=== PATIENT | female | born 1950 | race Caucasian/White ===

== ENCOUNTER 2018-05-24 06:22 | Inpatient (IN) | payer BC ==
[~2018-05-24 06:22] MED LIST: Buffered Lidocaine 0.9% SYRIN* 5 ML/SYR SYRINGE INTRADERM ONE; DiMENhydriNATE IV* 50 MG/ML VIAL IV PUSH ONE
[2018-05-24] MEDS ORDERED: Lidocaine 1% MPF wEPI 200,000* 30 ML SDV ONE (06:30)
[2018-05-24] MEDS ORDERED: Thrombin 5,000 UNITS* 1 APPLIC KIT - topical use - TOPICAL ONE (06:30)
[2018-05-24] MEDS ORDERED: Bacitracin IV* 50,000 UNITS INJ ONE (06:31)
[2018-05-24] MEDS ORDERED: DiMENhydriNATE IV* 50 MG/ML VIAL ONE (07:02)
[2018-05-24] MEDS ORDERED: ceFAZolin 2 GM PREMIX (*) 2 GM/50 ML BAG IVPB ONE (07:02)
[2018-05-24] MEDS ORDERED: Lidocaine 2% PF * 5 ML VIAL ONE (07:07)
[2018-05-24] MEDS ORDERED: Propofol* 10 MG/ML 20 ML BTL IV PUSH ONE (07:07)
[2018-05-24] MEDS ORDERED: Ondansetron ODT TAB* 4 MG ONE (07:07)
[2018-05-24] MEDS ORDERED: Dexamethasone IV* 4 MG/ML 1 ML (4 MG) ONE (07:07)
[2018-05-24] MEDS ORDERED: fentaNYL* 50 MCG/ML 2 ML VIAL (100 MCG VIAL) ONE ×2 (07:07→11:44)
[2018-05-24] MEDS ORDERED: Phenylephrine INJ* 10 MG/ML 1 ML VIAL (10 MG) ONE (07:07)
[2018-05-24] MEDS ORDERED: Midazolam* 1 MG/ML 5 ML VIAL (5 MG) ONE (07:07)
[2018-05-24] MEDS ORDERED: Cisatracurium* 2 MG/ML MDV 5 ML ONE (07:07)
[2018-05-24] MEDS ORDERED: Artificial Tear OPHTH.OINT* 3.5 GM ONE (07:12)
[2018-05-24] MEDS ORDERED: KETAMINE HCL* 50 MG/ML 10 ML VIAL ONE (07:48)
[2018-05-24] MEDS ORDERED: EPHEDrine (Pressors)* 50 MG/ML VIAL ONE (08:20)
[2018-05-24] MEDS ORDERED: HYDROmorphone INJ* 0.5 MG/0.5 ML SYRINGE ONE (10:20)
[2018-05-24] MEDS ORDERED: Naloxone* 0.4 MG/ML 1 ML VIAL IV PRN (10:34)
[2018-05-24] MEDS ORDERED: Ondansetron ODT TAB* 4 MG PO PRN (10:34)
--- NOTE | 2018-05-24 10:34 | RAD ---
INDICATION: Operative control films. Decompressive surgery. COMPARISON: March 11, 2018 TECHNIQUE/FINDINGS: A single crosstable lateral image shows retractors in place with a clamp on the spinous process of L4 and a curved hemostat at the L5 vertebral body level IMPRESSION: Operative control films are submitted
--- NOTE | 2018-05-24 11:00 | RAD ---
CPT II Codes: G9500 INDICATION: Lumbar laminectomy Fluoroscopic services provided for referring physician. 6.2 seconds of fluoroscopy time was used. 3 spot images demonstrates localization of the lumbar spine. IMPRESSION: Fluoroscopic services provided for referring physician.
[2018-05-24] MEDS: fentaNYL* 50 MCG/ML 2 ML VIAL (100 MCG VIAL) IV PRN ×2 (11:45→11:50)
[2018-05-24] MEDS ORDERED: Acetaminophen TAB* 325 MG PO PRN (12:00)
[2018-05-24] MEDS ORDERED: Magnesium Hydroxide LIQ* 30 ML UDC PO PRN (12:00)
[2018-05-24] MEDS ORDERED: Ondansetron 40 MG VIAL* 2 MG/ML 20 ML VIAL IV PRN (12:00)
[2018-05-24] MEDS ORDERED: Cyclobenzaprine TAB* 10 MG PO PRN (12:06)
[2018-05-24] MEDS ORDERED: HYDROcodone/ACETAMIN 5-325 MG* 1 TAB ONE (12:11)
[2018-05-24] MEDS: HYDROcodone/ACETAMIN 5-325 MG* 1 TAB PO PRN ×3 (12:12→21:46)
[2018-05-25] MEDS: HYDROcodone/ACETAMIN 5-325 MG* 1 TAB PO PRN ×3 (06:07→19:56)
--- NOTE | 2018-05-25 07:49 | PN ---
Progress Note - Progress Note Date of Service: 05/25/18 SOAP: Subjective: [S/p Lumbar decompression L3-S1 and fusion L4-5. Feeling well this morning, complains of incisional pain. Has not been up out of bed yet. Eating and drinking without difficulty. Denies headache, nausea. ] Objective: [ Vital Signs: Temp Pulse Resp BP Pulse Ox 97.9 F 61 19 107/50 97 05/25/18 03:06 05/25/18 03:06 05/25/18 06:07 05/25/18 03:06 05/25/18 03:06 General: Laying in bed comfortably. Neuro: Motor and sensory intact. Incision: Intact with kartik. No swelling or erythema. Wound drain in place and functioning well. Wound drain output 05/24/18 05/24/18 05/24/18 14:12 19:35 21:52 Output, MARIS #1 [id number] 44 05/24/18 05/25/18 23:15 03:09 Output, MARIS #1 30 15 ] Assessment: [Satisfactory post-op. ] Plan: [1. Discontinue falcon catheter. 2. Up out of bed, encourage ambulation. 3. Continue pain management. 4. Continue to monitor drain output. ]
[2018-05-25] MEDS: CMC:Budesonide CAP(NF) 3 MG PO SCH (08:46)
[2018-05-25] MEDS: Citalopram TAB* 20 MG PO SCH (08:46)
[2018-05-25] MEDS ORDERED: Metoprolol Succinate XL TAB* 50 MG PO SCH (09:00)
--- NOTE | 2018-05-26 00:37 | OP ---
DATE OF OPERATION: 05/24/18 - ROOM #348 DATE OF : 54 PRIMARY SURGEON: John Manley MD PRACTICE SUPPORT SPECIALIST: MARGIE Baron ANESTHESIA: General. PRE-OP DIAGNOSES: 1. Lumbar spinal stenosis, L3-L4, L4-L5, L5-S1. 2. Lumbar spondylolisthesis, L4-L5. POST-OP DIAGNOSES: 1. Lumbar spinal stenosis, L3-L4, L4-L5, L5-S1. 2. Lumbar spondylolisthesis, L4-L5. OPERATIVE PROCEDURE: Lumbar decompressive laminectomy L3-L4, L4-L5, L5-S1; lumbar fusion at L4-L5 with posterior nonsegmental instrumentation L4-L5; harvesting of autograft for fusion; use of stereotactic navigation for screw placement. DESCRIPTION OF PROCEDURE: After satisfactory general anesthesia was obtained, the patient was placed on the Gerard table in the prone position with the chest and iliac crest and thigh supported by pads. The lumbar region was clipped, prepped and draped in a sterile manner for lumbar exposure and a skin incision outlined from L3 to the sacrum. This incision was infiltrated with 1% Xylocaine with epinephrine, after which it was turned down sharply to the level of the lumbar fascia. The fascia was divided along the spinous processes from L3 to L5 and a paraspinal musculature stripped away from these posterior elements utilizing a periosteal elevator and a monopolar cautery. The dissection was carried out laterally until both the L4 and L5 transverse processes were exposed. Self-retaining retractors were placed to facilitate exposure. An intraoperative x-ray was obtained verifying proper interspace localization, after which the reference arc for the [place] O-arm stereotactic navigation system was affixed to the L5 spinous process. An intra- operative CT scan was then performed to enable stereotactic navigated placement of pedicle screws at the L4 and L5 levels. Screws were initially placed on the left side beginning at the L4 level where a 6.5 mm 45 length screw was placed. A screw was then placed at the L5 level that was also 6.5 mm in diameter, but 40 mm long. Screws were then placed on the right side in a similar manner utilizing stereotactic navigation. A 6.5 mm 45 length screw was placed at L4 and a 6.5 mm 40 length screw was placed at L5. A second O-arm spin was then obtained and it showed good screw placement. Attention was then directed to her spinous processes when the spinous processes of L3 and L4 were removed with a Leksell rongeur to be used as autograft for later in the procedure. Decompression was initially carried out at L3-L4 by thinning out the remaining portion of the inferior aspect of L3 spinous process and inferior aspect of the lamina. Decompression was then carried superiorly until the attachment of ligamentum flavum was taken down. Ligamentum flavum was removed with the Kerrison as well. This was carried inferiorly until both L4 nerve roots were noted to be free in their course. The dissection was then continued into the posterior elements of L4. They were thinned out and removed with Kerrison. At the inferior aspect of the L4 exposure, there was some scar tissue from where she had had previous surgery for excision of synovial cyst at this level. The entire posterior elements of L4 were removed. At the conclusion of the decompression, the L5 nerve roots were noted to be free in their course at this level. Attention was then directed to L5-S1 level where the L5 spinous process was removed. The inferior aspect of the L5 lamina was thinned out and decompression was carried out. At the conclusion of the decompression, the S1 nerve roots were notably free in their course. The wound was then thoroughly irrigated, after which Gelfoam was placed over the laminectomy defects. Medtronic rods were selected to fit at L4-L5 and were secured into position. Bone logs, which were formed from a combination of autograft as well as cancellous allograft with bony matrix, were placed out laterally at L4 and L5 to form a fusion at L4-L5. A drain was then placed in the epidural space and tunneled out toward the left side. The fascia was reapproximated with 0 Vicryl suture. The subcutaneous tissues were closed with 3-0 Vicryl suture and the skin closed with skin clips. The estimated blood loss was 250 cc and the final sponge, padding and needle counts were correct. The patient was taken to the recovery room, extubated and in stable condition. [id number]/[facility] #: [id number] [facility] HEALTH NETWORKAdama
[2018-05-26] MEDS: HYDROcodone/ACETAMIN 5-325 MG* 1 TAB PO PRN ×5 (05:55→22:04)
--- NOTE | 2018-05-26 09:25 | PN ---
Progress Note - Progress Note Date of Service: 05/26/18 SOAP: Subjective: [S/p L3-5 decompression and L4-5 fusion, POD #2. Low back incisional pain this morning, did not take pain medication overnight. Pain controlled with PO meds. Reports occasional shooting pain in LLE, improves quickly. Has been up out of bed and ambulating. Denies headache and nausea.] Objective: [ Vital Signs: Temp Pulse Resp BP Pulse Ox 98.6 F 61 16 98/53 95 05/26/18 07:17 05/26/18 07:17 05/26/18 07:43 05/26/18 07:17 05/26/18 07:17 General: Sitting up and without acute pain or distress. Neuro: Motor and sensory normal. Incision: Intact with kartik. Wound drain functioning well ] Assessment: [Satisfactory post-op course. ] Plan: [1. ]
[2018-05-26] MEDS: Citalopram TAB* 20 MG PO SCH (09:58)
[2018-05-26] MEDS: CMC:Budesonide CAP(NF) 3 MG PO SCH (10:12)
[2018-05-26] MEDS ORDERED: Metoprolol Succinate XL TAB* 50 MG PO SCH (18:00)
--- NOTE | 2018-05-27 07:37 | PN ---
Progress Note - Progress Note Date of Service: 05/27/18 SOAP: Subjective: []Doing well Has ambulated,voiding Drain output slowed Objective: []Drain minimal output Neuro intact Assessment: []Satis post op course Plan: []D/C today D/C Instructions given
[2018-05-27] MEDS: CMC:Budesonide CAP(NF) 3 MG PO SCH (09:12)
[2018-05-27] MEDS: Citalopram TAB* 20 MG PO SCH (09:12)
[2018-05-27] MEDS: HYDROcodone/ACETAMIN 5-325 MG* 1 TAB PO PRN (09:22)
[2018-05-27 10:50] VITALS: BP 100/57
== END 2018-05-27 09:30 | disposition home or self-care (01) | DRG 304 ==
LOC: AA 06:22 → SSU 12:54
PROVIDERS: ADMIT Neurological Surgery; ATTEND Neurological Surgery
PROC: 0QN00ZZ Release Lumbar Vertebra, Open Approach (ICD-10-PCS; 2018-05-24)
PROC: 0SG0071 Fusion of Lumbar Vertebral Joint with Autologous Tissue Substitute, Posterior Approach, Posterior Column, Open Approach (ICD-10-PCS; principal; 2018-05-24 07:30)
DX: M43.16 Spondylolisthesis, lumbar region (principal); M48.062 Spinal stenosis, lumbar region with neurogenic claudication; L71.9 Rosacea, unspecified; I10 Essential (primary) hypertension; J44.9 Chronic obstructive pulmonary disease, unspecified; Z87.891 Personal history of nicotine dependence
CPT/HCPCS: 72100; 76000; A9270-GY; C1713; C1776; J0690; J1100; J1170; J1240; J2001; J2250; J2704; J3010

== ENCOUNTER 2019-03-02 16:40 | Emergency (ER) | payer BC, MEDICARE ==
--- OUTSIDE RECORDS SUMMARY | 2019-03-02 16:45 | XMS REPORT | Continuity of Care Document ---
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 PayID: [id number] PEPE Steele [id number] Effective: 2013 [id number] [facility] Gomez Verdin Expires: 2016 Group Name: [employer] [address] PayID: [id number] PEPE Steele [phone] Effective: 2016 Policy Number: [id number] [facility] Vasile Gomez Velvet Group Name: [employer] [place] [address] PayID: [id number] PEPE Steele [phone] Expires: 2017 Policy Number: [id number] [facility] Vasile Solimanenson PayID: [id number] [address] [place] [address] Advance Directives Description No Information Available Problems Date Description Provider Status Onset: 10/14/2012 Celiac disease Lyssa Thacker M.D. Active Onset: 10/14/2012 Chronic obstructive lung disease Lyssa Thacker M.D. 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 Tobacco Use Start: Unknown End: Former Cigarette Smoker Unknown Cigarette Use Pack Years - 05 Extensive second hand smoke exposure ETOH Use Currently consumes Has a "[place]" alcohol daily Tobacco Use Start: Unknown End: Patient is a former Unknown smoker Enjoy Exercising Enjoys exercising Allergies, Adverse Reactions, Alerts Date Description Reaction Status Severity Comments 09/26/2012 Gluten Active Medications Medication Date Status Form Strength Qnty SIG Indications Ordering Provider Anoro Ellipta 02/09 Active Aerosol 62.5-25mc 60uni Inhale 1 J44.1 g/Inh ts puff by johnathan Bernstein MD daily for chronic obstructiv e lung disease Ventolin HFA 12/07 Active Aerosol 108(90Bas 18uni inhale two J20.9 Shawnti R. /2019 e) ts puffs by betty Sandoval/Act mouth [employer] SPE[employer]CH LANGUAGE PATHOLOGIST-C every 4 hours as needed for wheeze Advair HFA 11/03 Active Aerosol 230-21mcg 16gm inhale 2 J44.1 José Luis /2017 /Act puffs by johnathan Bernstein two MD times daily, then rinse out your mouth Pneumovax 23 11/03 Active Injection 25mcg/0.5 0.500 inject Z00.00 ML ml vaccine Day intramuscu lar to prevent pneumonia Proair HFA 08/11 Active Aerosol 108(90Bas 17gm 1-2 every J44.1 José Luis e) 6 hours as betty Bernstein/Act needed Lisinopril 08/11 Active Tablets 10mg 30tab 1 by mouth I10 José Luis s every day MD Day Ibu 02/24 Active Tablets 600mg 90tab take one José Luis s tablet by johnathan Bernstein MD every 8 hours as needed for pain, take with food Cyanocobalamin 03/06 Active Solution 1000mcg/M 1unit Inject 1 L s Milliliter Day (1 Vial) Once Per Month as Directed Asacol HD 10/[address] 800mg 2 tab by mouth Tristanetceline, daily Budesonide 10/[address] 3mg 90cap Take 1 Part s Capsule By Day, Mouth Every Day Syringe/Luer 04/13 Active Misc 25G X 1box Use as Lyssa Slip/1ML/25G X /04/05" 1 ML directed Stephany Thacker, 04/05" to give M.D. yourself Vitamin B12 injections . Calcium 1000 + D Active Unknown / Doxycycline 12/07 Hx Capsules 100mg 20cap 1 by mouth J20.9 Shawnti R. Monohydrate s twice Storm, - daily for [employer] SPE[employer] LANGUAGE PATHOLOGIST-C 01/06 10 /2018 Prednisone 12/07 Hx Tablets 20mg 13tab 3 by mouth J20.9 Shawnti R. /2018 s every day Storm, - x 2days, 2 [employer] SPE[employer] LANGUAGE PATHOLOGIST-C 02/09 by mouth /2018 every day x 2 days, 1 by mouth every day x 2 days, 1/2 by mouth every day x 2 days Cyclobenzaprine 03/01 Hx Tablets 10mg 60tab 1 tab by José Luis s mouth [place], - three 06/02 times day as needed Tramadol HCL 02/24 Hx Tablets 50mg 90tab 1 tab by José Luis s mouth [place], - three MD 08/11 times a day as needed Doxycycline 10/15 Hx Capsules 100mg 14cap 1 take by R50.9 José Luis Hyclate s mouth [place], - capsule 2 06/02 times per day for 7 days for infection Doxycycline 09/30 Hx Capsules 100mg 20cap 1 take by L03.115 José Luis Hyclate s mouth [place], - capsule 2 10/15 times per day for 10 days for infection Meloxicam 06/17 Hx Tablets 15mg 30tab 1 by mouth M54.10 José Luis s every day [place], - MD 09/30 Gabapentin 06/17 Hx Capsules 300mg 90cap 1 tab by M54.10 José Luis s mouth Day, - three 09/30 times day as needed. will cause sleepiness . Neurontin 02/02 Hx Capsules 300mg Bedtime - 06/17 Metoprolol 11/10 Hx Tablets ER 50mg 30tab Take 1 José Luis Succinate ER 24HR s Tablet By Day, - Mouth 06/02 Every Claritin 03/06 Hx Tablets 10mg 30tab 1 by mouth José Luis s every day Day, Silvia WERNER 06/17 Ibuprofen 11/20 Hx Tablets 600mg 90tab 1 tab by José Luis s mouth Day, - three 06/17 times day as needed Metoprolol 11/20 Hx Tablets ER 25mg 30tab Take 1 José Luis Succinate ER 24HR s Tablet By Day, - Mouth 11/10 Cimetidine 10/10 Hx Tablets 300mg 60tab Take 1 José Luis s Tablet By Day, - Mouth Two MD 06/02 Times Daily For Heartburn Meclizine HCL 05/16 Hx Tablets 25mg 30tab 1 by mouth 386.11 Shawnti R. s q6hr as Jaime, - needed [employer] SPE[employer] LANGUAGE PATHOLOGIST-C 11/20 dizziness /2014 Omeprazole 10/[address] 20mg 30cap Take 1 530.81 Shawnti R. s Capsule By Jaime, - Mouth [employer]INGUAL SPE[employer]CH LANGUAGE PATHOLOGIST-C 10/10 Every Spiriva 01/18 Hx Capsules 18mcg 90cap use as J44.9 Jabari Anand Handihaler s directed Jaime, - once daily B[employer] SPE[employer]CH LANGUAGE PATHOLOGIST-C 06/17 Vitamin B12 01/18 Hx Tablets ER 1000mcg inject 496 Lyssa monthly Silvia Gunter M.D. 01/18 Cyanocobalamin 01/18 Hx Solution 1000mcg/M QS inject 1 J44.9 Nathalia L milliliter [place], - s (one [employer]ING[employer] SPE[employer]CH LANGUAGE PATHOLOGIST-C 11/20 vial) once /2014 per month as directed Betamethasone 10/16 Hx Cream 0.05% 45gm apply a 692.9 Lyssa Dipropionate thin layer Stephany Thacker, - to M.D. 11/20 affected /2014 area bid Ibuprofen 10/16 Hx Tablets 600mg 60tab 1 po tid 692.9 Lyssa /2012 s Stephany Thacker, - M.D. 11/20 Fluticasone 08/07 Hx Suspension 50mcg/Act 1unit one spray 477.9 Lyssa Propionate s to each Stephany Thacker, - nostril M.D. 11/20 daily /2014 Cromolyn Sodium 08/07 Hx Solution 4% 10ml use two 372.14 Lyssa drops to Stephany Thacker, - both eye M.D. 11/20 daily as needed for allergic congestion Cetirizine HCL 04/13 Hx Tablets 10mg 30tab 1 po qd 782.1 Lyssa s Stephany Thacker, - M.D. 11/20 Multivital 09/26 Hx Tablets daily Shawnti R. /2011 Storm, - BILING[employer] SPEECH LANGUAGE PATHOLOGIST-C 06/02 Estradiol 09/26 Hx Patches 0.05mg/24 apply Shawnti R. /2011 Weekly HR weekly Storm, - B[employer]ING[employer] SPEECH LANGUAGE PATHOLOGIST-C 11/20 Vitamin B12 09/26 Hx inject Shawnti R. /2011 monthly Storm, - B[employer]ING[employer] SPEECH LANGUAGE PATHOLOGIST-C 01/18 Pessary 09/26 Hx Shawnti R. /2011 Storm, - B[employer]INGUAL SPEECH LANGUAGE PATHOLOGIST-C 11/20 Prednisone 09/26 Hx Tablets 50mg 5tabs one pill 786.2 Shawnti R. /2011 po daily Storm, - for 5 days B[employer]ING[employer] SPEECH LANGUAGE PATHOLOGIST-C 10/01 for breathing Azithromycin 09/26 Hx Tablets 250mg 6tabs 2 po today 786.2 Shawnti R. /2011 then 1 po Storm, - daily for [employer] SPE[employer]CH LANGUAGE PATHOLOGIST-C 10/14 4 days Asmanex 120 09/26 Hx Aerosol 220mcg/In 1unit 1 inh bid 786.2 Shawnti R. Metered Doses /2011 h s for Storm, - breathing B[employer]INGUAL SPEECH LANGUAGE PATHOLOGIST-C 04/13 Albuterol HFA 09/26 Hx 90mcg/Inh 1unit 2 inh q4-6 786.2 Shawnti R. /2011 s hrs prn Storm, - shortness BILING[employer] SPEECH LANGUAGE PATHOLOGIST-C 11/20 of breath, cough, wheeze Citalopram 09/26 Hx Tablets 20mg 90tab Take 1 José Luis Hydrobromide s Tablet By Day, - Mouth MD 06/02 Every Day Fish Oil Hx Unknown /0000 - 06/02 Fisher Colon Hx Unknown Health /0000 - 06/17 Oxycodone HCL Hx Capsules 5mg 1 by mouth Unknown /0000 every 8 - hours as 08/11 Immunizations CPT Code Status Date Vaccine Lot # 34811 Given 08/11/2018 Influenza Vaccine High Dose PF [id number] 94418 Given 10/18/2017 Prevnar-13 Pneumococcal Conjugate Vaccine [id number] 05362 Given 09/30/2017 Influenza Virus Vaccine, Quadrivalent, 3 Yr > [id number] Quad, Preserv Free 08135 Given 10/15/2016 Influenza Virus Vaccine, Quadrivalent, 3 Yr > [id number] Quad, Preserv Free 25126 Given 10/10/2015 Influenza Virus Vaccine, Quadrivalent, 3 Yr > [id number] Quad, Preserv Free 89391 Given 10/01/2014 Influenza Virus Vaccine, Quadrivalent, 3 Yr > [id number] Quad, Preserv Free 96289 Given 10/16/2013 Influenza Vaccine-Preservative Free 3 Yrs And [id number] Above 04974 Given 10/14/2012 Pneumovax 23 (PPSV23) 65+ years or high risk 2 to [id number] 66 year old 51067 Given 10/14/2012 Tdap (Adacel) [id number] 90211 Given 10/14/2012 Influenza Vaccine-Preservative Free 3 Yrs And [id number] Above Vital Signs Date Vital Result Comment 02/09/2019 11:33am Weight 154.00 lb Weight 69.854 kg BP Systolic 142 mmHg BP Diastolic 80 mmHg Heart Rate 82 /min Body Temperature 97.7 F Respiratory Rate 16 /min O2 % BldC Oximetry 91 % 12/07/2018 10:26am Weight 151.00 lb Weight 68.494 kg BP Systolic 112 mmHg BP Diastolic 68 mmHg Heart Rate 98 /min Body Temperature 98.9 F O2 % BldC Oximetry 93 % 11/03/2018 1:02pm Weight 152.00 lb Weight 68.947 kg BP Systolic 130 mmHg BP Diastolic 80 mmHg Heart Rate 76 /min Body Temperature 97.5 F Respiratory Rate 16 /min Height 67 inches 5'7" BMI (Body Mass Index) 23.8 kg/m2 08/25/2018 10:59am Weight 152.00 lb Weight 68.947 kg BP Systolic 144 mmHg BP Diastolic 82 mmHg Heart Rate 78 /min Body Temperature 97.7 F Respiratory Rate 18 /min 08/11/2018 10:55am Weight 151.00 lb Weight 68.494 kg BP Systolic 160 mmHg BP Diastolic 92 mmHg Heart Rate 74 /min Body Temperature 97.7 F Respiratory Rate 16 /min O2 % BldC Oximetry 95 % 06/02/2018 8:58am Weight 150.00 lb Weight 68.040 kg BP Systolic 122 mmHg BP Diastolic 84 mmHg Heart Rate 67 /min Body Temperature 97.7 F Respiratory Rate 18 /min O2 % BldC Oximetry 95 % 02/24/2018 8:23am Weight 153.00 lb Weight 69.401 kg BP Systolic 138 mmHg BP Diastolic 78 mmHg Heart Rate 64 /min Body Temperature 98.1 F Respiratory Rate 18 /min 10/18/2017 7:59am Weight 152.00 lb Weight 68.947 kg BP Systolic 120 mmHg BP Diastolic 68 mmHg Heart Rate 64 /min Body Temperature 97.7 F Height 67 inches 5'7" BMI (Body Mass Index) 23.8 kg/m2 O2 % BldC Oximetry 98 % 10/15/2017 11:33am Weight 154.00 lb Weight 69.854 kg BP Systolic 140 mmHg BP Diastolic 72 mmHg Heart Rate 88 /min Body Temperature 99.2 F Respiratory Rate 14 /min O2 % BldC Oximetry 98 % 09/30/2017 11:49am Weight 155.00 lb Weight 70.308 kg BP Systolic 128 mmHg BP Diastolic 86 mmHg Heart Rate 63 /min Body Temperature 98.0 F Respiratory Rate 16 /min O2 % BldC Oximetry 98 % 06/17/2017 4:43pm Weight 153.00 lb Weight 69.401 kg BP Systolic 168 mmHg BP Diastolic 90 mmHg Heart Rate 66 /min Body Temperature 97.7 F Respiratory Rate 16 /min O2 % BldC Oximetry 98 % 10/15/2016 8:03am Weight 156.00 lb Weight 70.762 kg BP Systolic 140 mmHg BP Diastolic 80 mmHg Heart Rate 64 /min Height 65.5 inches 5'5.50" BMI (Body Mass Index) 25.6 kg/m2 01/08/2016 3:23pm Weight 159.00 lb Weight 72.122 kg BP Systolic 134 mmHg BP Diastolic 70 mmHg Heart Rate 72 /min 11/20/2015 9:20am Weight 156.00 lb Weight 70.762 kg BP Systolic 140 mmHg BP Diastolic 78 mmHg Heart Rate 70 /min 10/10/2015 12:52pm Weight 158.00 lb Weight 71.669 kg BP Systolic 132 mmHg BP Diastolic 82 mmHg Heart Rate 60 /min Height 67 inches 5'7" BMI (Body Mass Index) 24.7 kg/m2 05/16/2015 3:49pm Weight 151.00 lb Weight 68.494 kg BP Systolic 130 mmHg BP Diastolic 72 mmHg Heart Rate 72 /min Body Temperature 95.5 F O2 % BldC Oximetry 92 % 10/01/2014 4:05pm Weight 152.00 lb Weight 68.947 kg BP Systolic 134 mmHg BP Diastolic 80 mmHg Heart Rate 72 /min Height 67 inches 5'7" BMI (Body Mass Index) 23.8 kg/m2 01/18/2014 9:44am Weight 156.00 lb Weight 70.762 kg BP Systolic 136 mmHg BP Diastolic 90 mmHg Heart Rate 66 /min O2 % BldC Oximetry 98 % 10/16/2013 8:31am Weight 157.00 lb Weight 71.215 kg BP Systolic 132 mmHg BP Diastolic 86 mmHg Heart Rate 72 /min Height 67.5 inches 5'7.50" BMI (Body Mass Index) 24.2 kg/m2 08/07/2013 3:00pm Weight 154.00 lb Weight 69.854 kg BP Systolic 116 mmHg BP Diastolic 80 mmHg Heart Rate 84 /min Body Temperature 97.6 F 04/13/2013 9:18am Weight 150.00 lb Weight 68.040 kg BP Systolic 130 mmHg BP Diastolic 84 mmHg Heart Rate 76 /min 10/14/2012 8:58am Weight 152.00 lb Weight 68.947 kg BP Systolic 136 mmHg BP Diastolic 90 mmHg Heart Rate 68 /min 09/26/2012 9:58am Weight 150.00 lb Weight 68.040 kg BP Systolic 128 mmHg BP Diastolic 86 mmHg Heart Rate 67 /min Body Temperature 97.3 F Height 66.75 inches 5'6.75" BMI (Body Mass Index) 23.7 kg/m2 Last Menstrual Period 0 O2 % BldC Oximetry 98 % Results Test Date Facility Test Result H/L Range Note Laboratory test 12/08/2018 [facility] Surgical SEE RESULT 1, 2 finding [phone] Pathology BELOW CBC No Diff 05/17/2018 [facility] White Blood 4.6 10^ 3/uL N 3.5-10.8 [phone] Count Red Blood Count 4.23 10^6/uL N 4.00-5.40 Hemoglobin 13.9 g/dL N 12.0-16.0 Hematocrit 40 % N 35-47 Mean Corpuscular Volume 95 fL N 80-97 Mean Corpuscular Hemoglobin 33 pg High 27-31 Mean Corpuscular HGB Conc 35 g/dL N 31-36 Red Cell Distribution Width 14 % N 10.5-15 Platelet Count 230 10^3/uL N 150-450 Mean Platelet Volume 9.5 um3 N 7.4-10.4 Basic Metabolic 05/17/2018 [facility] Sodium 139 mmol /L N 135-145 Panel [phone] Potassium 4.2 mmol/L N 3.5-5.0 Chloride 103 mmol/L N 101-111 Co2 Carbon Dioxide 29 mmol/L N 22-32 Anion Gap 7 mmol/L N 2-11 Glucose 116 mg/dL High 70-100 Blood Urea Nitrogen 25 mg/dL High 6-24 Creatinine 0.92 mg/dL N 0.51-0.95 BUN/Creatinine Ratio 27.2 High 8-20 Calcium 9.6 mg/dL N 8.6-10.3 Egfr Non- 61.3 >60 Egfr 78.8 >60 3 Type & Screen 05/17/2018 [facility] Patient Blood O Positive [phone] Type Antibody Screen NEGATIVE Lipid Profile 10/18/2017 [facility] Triglycerides 251 mg/dL 4 (Trig/Chol/HDL) [phone] Cholesterol 199 mg/dL 5 HDL Cholesterol 41.6 mg/dL 6 LDL Cholesterol 107 mg/dL 7 Laboratory test 10/18/2017 [facility] Hemoglobin A1c 6.6 % High 4.0-5.6 8 finding [phone] (Glyco HGB) Liver Function 10/18/2017 [facility] Total Protein 6.8 g/dL N 6.4-8.9 Panel [phone] Albumin 4.1 g/dL N 3.2-5.2 Globulin 2.7 g/dL N 2-4 Albumin/Globulin Ratio 1.5 N 1-3 Total Bilirubin 0.40 mg/dL N 0.2-1.0 Direct Bilirubin 0.10 mg/dL N 0.03-0.18 Indirect Bilirubin 0.3 mg/dL N 0.3-1.0 Alkaline Phosphatase 115 U/L High 34-104 Alt 78 U/L High 7-52 Ast 73 U/L High 13-39 Laboratory test 10/18/2017 [facility] C Reactive 33.91 mg/L High < 5.00 9 finding [phone] Protein Laboratory test 10/18/2017 In House Lab Glucose By 127 High 78-110 finding [phone] Moniter Laboratory test 10/15/2017 [facility] Lyme Disease Negative Negative 10 finding [phone] Serology Comp Metabolic 10/15/2017 [facility] Sodium 134 mmol/ L N 133-145 11 Panel [phone] Potassium 3.6 mmol/L N 3.5-5.0 12 Chloride 99 mmol/L Low 101-111 13 Co2 Carbon Dioxide 27 mmol/L N 22-32 Anion Gap 8 mmol/L N 2-11 14 Glucose 221 mg/dL High 70-100 15 Blood Urea Nitrogen 24 mg/dL N 6-24 16 Creatinine 0.98 mg/dL High 0.51-0.95 17 BUN/Creatinine Ratio 24.5 High 8-20 18 Calcium 9.0 mg/dL N 8.6-10.3 19 Total Protein 6.7 g/dL N 6.4-8.9 20 Albumin 4.0 g/dL N 3.2-5.2 Globulin 2.7 g/dL N 2-4 21 Albumin/Globulin Ratio 1.5 N 1-3 22 Total Bilirubin 0.50 mg/dL N 0.2-1.0 23 Alkaline Phosphatase 109 U/L High 34-104 24 Alt 66 U/L High 7-52 25 Ast 72 U/L High 13-39 26 Egfr Non- 57.0 >60 27 Egfr 73.3 >60 28 CBC Auto Diff 10/15/2017 [facility] White Blood 3.6 10^3/uL N 3.5-10.8 29 [phone] Count Red Blood Count 4.52 10^6/uL N 4.0-5.4 30 Hemoglobin 14.5 g/dL N 12.0-16.0 31 Hematocrit 43 % N 35-47 32 Mean Corpuscular Volume 96 fL N 80-97 33 Mean Corpuscular Hemoglobin 32 pg High 27-31 34 Mean Corpuscular HGB Conc 34 g/dL N 31-36 35 Red Cell Distribution Width 14 % N 10.5-15 36 Platelet Count 172 10^3/uL N 150-450 37 Mean Platelet Volume 9 um3 N 7.4-10.4 38 Abs Neutrophils 3.0 10^3/uL N 1.5-7.7 39 Abs Lymphocytes 0.3 10^3/uL Low 1.0-4.8 40 Abs Monocytes 0.3 10^3/uL N 0-0.8 41 Abs Eosinophils 0 10^3/uL N 0-0.6 42 Abs Basophils 0 10^3/uL N 0-0.2 43 Abs Nucleated RBC 0.01 10^3/uL 44 Granulocyte % 82.7 % N 38-83 45 Lymphocyte % 8.2 % Low 25-47 46 Monocyte % 8.3 % N 1-9 47 Eosinophil % 0.1 % N 0-6 48 Basophil % 0.7 % N 0-2 49 Nucleated Red Blood Cells % 0.2 50 Laboratory test 10/15/2017 [facility] C Reactive 143.65 mg/L High < 5.00 51 finding [phone] Protein Laboratory test 10/15/2016 [facility] Cytology SEE RESULT 52 finding [phone] BELOW HPV Rna Ww/Reflex Genotype Negative N Negative 53 Jade Hep-2 11/20/2015 [facility] Jade Pattern (SEE NOTE ) N Negative 54 [phone] Jade Reviewed By MD [place] <SEE NOTE> N 55 Laboratory test 11/20/2015 [facility] Creatine 194 U/ L N 10-223 finding [phone] Kinase(CK) Centromere Auto Abs <0.2 U N 56 Rna Polymerase III IgG <10.0 U N 57 Rheumatoid Factor <15 IU/mL N <15 58 Cyclic Citrullinated Pep Igg <15.6 U N 59 Jade (Antinuclear Antibodies) Reflexed to FA Abnormal Negative Comp Metabolic Panel 11/20/2015 [facility] Sodium 138 mmol/L N 133-145 [phone] Potassium 3.8 mmol/L N 3.5-5.0 Chloride 100 mmol/L Low 101-111 Co2 Carbon Dioxide 31 mmol/L N 22-32 Anion Gap 7 mmol/L N 2-11 Glucose 105 mg/dL High 70-100 Blood Urea Nitrogen 28 mg/dL High 6-24 Creatinine 1.04 mg/dL High 0.51-0.95 BUN/Creatinine Ratio 26.9 High 8-20 Calcium 9.9 mg/dL N 8.6-10.3 Total Protein 7.5 g/dL N 6.4-8.9 Albumin 4.6 g/dL N 3.2-5.2 Globulin 2.9 g/dL N 2-4 Albumin/Globulin Ratio 1.6 N 1-3 Total Bilirubin 0.80 mg/dL N 0.2-1.0 Alkaline Phosphatase 46 U/L N 34-104 Alt 21 U/L N 7-52 Ast 23 U/L N 13-39 Egfr Non- 53.5 N >60 Egfr 68.8 N >60 60 CBC Auto Diff 11/20/2015 [facility] White Blood 4.3 10^3/uL N 3.5-10.8 [phone] Count Red Blood Count 4.39 10^6/uL N 4.0-5.4 Hemoglobin 13.7 g/dL N 12.0-16.0 Hematocrit 43 % N 35-47 Mean Corpuscular Volume 98 fL High 80-97 Mean Corpuscular Hemoglobin 31 pg N 27-31 Mean Corpuscular HGB Conc 32 g/dL N 31-36 Red Cell Distribution Width 13 % N 10.5-15 Platelet Count 292 10^3/uL N 150-450 Mean Platelet Volume 10 um3 N 7.4-10.4 Abs Neutrophils 2.3 10^3/uL N 1.5-7.7 Abs Lymphocytes 1.5 10^3/uL N 1.0-4.8 Abs Monocytes 0.5 10^3/uL N 0-0.8 Abs Eosinophils 0 10^3/uL N 0-0.6 Abs Basophils 0 10^3/uL N 0-0.2 Abs Nucleated RBC 0 10^3/uL N Granulocyte % 53.2 % N 38-83 Lymphocyte % 34.9 % N 25-47 Monocyte % 10.8 % High 1-9 Eosinophil % 0 % N 0-6 Basophil % 1.1 % N 0-2 Nucleated Red Blood Cells % 0 N Laboratory test 11/20/2015 [facility] Scleroderma AB <0.2 U N 61 finding [phone] (SCL70) Urine DIP 11/20/2015 In House Lab Leukocytes +++ Neg [phone] Urine Nitrites neg Neg Urobilinogen neg Norm Total Protein, Urine + Neg Urine pH 5 5-6 Urine Blood neg Neg Specific [place] 1.015 1.01-1.02 Urine Ketones neg Neg Urine Bilirubin neg Neg Urine Glucose neg Norm Laboratory test 11/20/2015 [facility] Urine Culture SEE RESULT 62 finding [phone] BELOW Urinalysis Profile 11/20/2015 [facility] Urine Color Yellow N [phone] Urine Appearance Cloudy N Urine Specific [place] 1.015 N 1.010-1.030 Urine pH 5.0 N 5-9 Urine Urobilinogen Negative N Negative Urine Ketones Negative N Negative Urine Protein Negative N Negative Urine Leukocytes 2+ Abnormal Negative Urine Blood Negative N Negative Urine Nitrite Negative N Negative Urine Bilirubin Negative N Negative Urine Glucose Negative N Negative Urine White Blood Cell 1+(6-10/hpf) Abnormal Absent Urine Red Blood Cell Absent N Absent Urine Bacteria 1+ Abnormal Absent Urine Squamous Epithelial Cell Present Abnormal Absent Urine Transitional Epithelial Present Abnormal Absent Urine Renal Epithelial Cells Present Abnormal Absent Laboratory 10/10/2015 [facility] Hepatitis C Nonreactive N Nonreactive test finding [phone] Antibody HIV 1&2 AB Self Referred Nonreactive N Nonreactive 63 Vitamin D Total 25(Oh) 31.7 ng/mL N 30-50 Basic Metabolic 10/01/2014 [facility] Sodium 140 mmol /L N 133-145 64 Panel [phone] Potassium 4.1 mmol/L N 3.5-5.0 65 Chloride 104 mmol/L N 101-111 Co2 Carbon Dioxide 29 mmol/L N 22-32 Anion Gap 7 mmol/L N 2-11 Glucose 90 mg/dL N 70-100 Blood Urea Nitrogen 24 mg/dL N 6-24 Creatinine 1.01 mg/dL High 0.51-0.95 BUN/Creatinine Ratio 23.8 High 8-20 Calcium 9.8 mg/dL N 8.6-10.3 Egfr Non- 55.5 N >60 Egfr 71.4 N >60 66 Laboratory test 10/01/2014 [facility] TSH (Thyroid 3.78 N 0.34-5.60 67 finding [phone] Stimulating IU/mL Horm) Vitamin B12 474 pg/mL N 180-914 68 Vitamin D 1,25-Dihydroxy 32 pg/mL N 18-78 69 Lipid Profile 10/01/2014 [facility] Triglycerides 180 mg/dL N 70 (Trig/Chol/HDL) [phone] Cholesterol 212 mg/dL N 71 HDL Cholesterol 64.9 mg/dL N 72 LDL Cholesterol 111 mg/dL N 73 Liver Function 10/01/2014 [facility] Total Protein 7.2 g/dL N 6.4-8.9 Panel [phone] Albumin 4.6 g/dL N 3.2-5.2 Globulin 2.6 g/dL N 2-4 Albumin/Globulin Ratio 1.8 N 1-3 Total Bilirubin 0.50 mg/dL N 0.2-1.0 Direct Bilirubin 0.10 mg/dL N 0.03-0.18 Indirect Bilirubin 0.4 mg/dL N 0.3-1.0 Alkaline Phosphatase 66 U/L N 34-104 Alt 21 U/L N 7-52 Ast 23 U/L N 13-39 Laboratory test 10/01/2014 [facility] CRP High 2.31 mg/L N 74 finding [phone] Sensitivity Basic Metabolic 10/16/2013 [facility] Sodium 136 mmol /L 133-14 Panel [phone] Potassium 3.9 mmol/L 3.5-5.0 Chloride 102 mmol/L 101-111 Co2 Carbon Dioxide 26.0 mmol/L 22-32 Anion Gap 8.0 mmol/L 2-11 Glucose 101 mg/dL High 70-100 Blood Urea Nitrogen 18 mg/dL 6-24 Creatinine 0.90 mg/dL 0.50-1.40 BUN/Creatinine Ratio 20.0 8-20 Calcium 9.5 mg/dL 8.1-9.9 Egfr Non- 63.7 >60 Egfr 81.9 >60 75 Laboratory test 10/16/2013 [facility] TSH (Thyroid 2.77 0.34-5.60 76 finding [phone] Stimulating miu/mL Horm) Vitamin B12 381 pg/mL 180-914 77 Vitamin D 1,25-Dihydroxy 34 pg/mL 18-78 78 Lipid Profile 10/16/2013 [facility] Triglycerides 74 mg/dL 40-200 (Trig/Chol/HDL) [phone] Cholesterol 194 mg/dL Less than 200 HDL Cholesterol 64 mg/dL High 40-60 79 Cholesterol/HDL Ratio 3.0 Average 1-4.44 LDL Cholesterol 115.2 High Less Than 100 80 Liver Function 10/16/2013 [facility] Total Protein 7.0 g/dL 6.2-8.1 Panel [phone] Albumin 4.2 g/dL 3.2-5.2 Globulin 2.8 g/dL 2-4 Albumin/Globulin Ratio 1.5 1-3 Total Bilirubin 1.0 mg/dL 0.4-1.5 Direct Bilirubin 0.2 mg/dL 0.1-0.5 Indirect Bilirubin 0.8 mg/dL 0.3-1.0 Alkaline Phosphatase 57 U/L 30-110 Alt 20 U/L 14-54 Ast 26 U/L 12-42 Human Papilloma 07/11/2013 [facility] Human Papillomavirus See Comment 81 Virus [phone] Source Human Papillomavirus High Risk Negative Negative 82 Cytology 07/10/2013 [facility] Cy RUN DATE: 83 [phone] 07/11/ <SEE NOTE> Laboratory test 10/14/2012 [facility] Calcium 9.8 mg/ dL 8.1-9. finding [phone] Vitamin D, 25 10/14/2012 [facility] 25-Hydroxy <4.0 ng/mL Hydroxy [phone] Vitamin D2 25-Hydroxy Vitamin D3 34 ng/mL 25-Hydroxy Vitamin D Total 34 ng/mL 84 Laboratory test 10/14/2012 [facility] Vitamin B12 433 pg/mL 180-914 finding [phone] Basic Metabolic 10/14/2012 [facility] Sodium 138 mmol /L 133-145 Panel [phone] Potassium 4.1 mmol/L 3.5-5.0 Chloride 100 mmol/L Low 101-111 Co2 Carbon Dioxide 30.0 mmol/L 22-32 Anion Gap 8.0 mmol/L 2-11 Glucose 99 mg/dL 70-100 Blood Urea Nitrogen 14 mg/dL 6-24 Creatinine 0.80 mg/dL 0.50-1.40 BUN/Creatinine Ratio 17.5 8-20 Egfr Non- 73.2 >60 Egfr 94.1 >60 85 CBC No Diff 10/14/2012 [facility] White Blood 5.0 10^ 3/uL 4.8-10.8 [phone] Count Red Blood Count 5.21 10^6/uL 4.0-5.4 Hemoglobin 16.3 g/dL High 12.0-16.0 Hematocrit 50 % High 35-47 Mean Corpuscular Volume 95 fL 80-97 Mean Corpuscular Hemoglobin 31 pg 27-31 Mean Corpuscular HGB Conc 33 g/dL 31-36 Red Cell Distribution Width 15 % 10.5-15 Platelet Count 281 10^3/uL 150-450 Mean Platelet Volume 10 um3 7.4-10.4 Lipid Profile 10/14/2012 [facility] Triglycerides 61 mg/dL 40-200 (Trig/Chol/HDL) [phone] Cholesterol 177 mg/dL Less than 200 HDL Cholesterol 49 mg/dL 40-60 86 Cholesterol/HDL Ratio 3.6 AVERAGE 1-4.44 LDL Cholesterol 115.8 mg/dL High Less Than 100 87 Liver Function 10/14/2012 [facility] Total Protein 7.3 GM/DL 6.2-8.1 Panel [phone] Albumin 3.9 GM/DL 3.2-5.2 Globulin 3.4 GM/DL 2-4 Albumin/Globulin Ratio 1.1 1-3 Total Bilirubin 0.8 mg/dL 0.1-1.0 88 Direct Bilirubin 0.1 mg/dL 0.1-0.5 Indirect Bilirubin 0.7 mg/dL 0.3-1.0 Alkaline Phosphatase 77 U/L 30-110 Alt 35 U/L 14-54 Ast 35 U/L 12-42 Laboratory test 10/14/2012 [facility] TSH (Thyroid 1.69 0.34-5.60 finding [phone] Stimulating MIU/ML Horm) 1 2035-A:Morphology: irregularly pigmented macule with irregular pigmentary network under dermoscop 2 SEE RESULT BELOW Name: VASILE VERDIN : [address]: Prachi Holloway MD Acct: [id number] Unit: [id number] AGE: 68 Location: [facility] Re12/08/18 SEX: F Status: REG REF SPEC: [id number] GALA: 12/08/18-0851 [facility] DR: Prachi Holloway MD REQ: [id number] RECD: 12/08/188509 STATUS: HARMEET ROSAS DR: José Luis Bernstein MD _ ORDERED: LEVEL 4 COMMENTS: [id number] FINAL DIAGNOSIS Skin, left mid to upper back, biopsy: -- Junctional melanocytic nevus with architectural disorder and mild to moderate cytologic atypia. -- The lesion is excised in the planes of sectioning examined. CLINICAL HISTORY Please check margins. PRE-OPERATIVE DIAGNOSIS Irregularly pigmented macule with irregular pigmentary network under dermoscopy, dysplastic nevus GROSS DESCRIPTION The specimen is received in formalin labeled, Left Mid to Upper Back, and consists of a 0.9 x 0.7 cm muro-pink ovoid skin shave with a central 0.3 x 0.2 cm mottled brown- cruz macule and scant adherent red-brown blood clot. The specimen is inked, trisected and submitted entirely in one cassette. Signed by and Reported on: Ana Ahumada MD 12/09/18 0950 END OF REPORT DEPARTMENT OF PATHOLOGY, [address] [place] [address] Kane Courtney M.D. Director [facility] # [id number] 3 Because ethnic data is not always readily available, this report includes an eGFR for both -Americans and non- Americans. The National Kidney Disease Education Program (NKDEP) does not endorse the use of the MDRD equation for patients that are not between the ages of 18 and 70, are , have extremes of body size, muscle mass, or nutritional status, or are non- or non-. According to the National Kidney Foundation, irrespective of diagnosis, the stage of the disease is based on the level of kidney function: Stage Description GFR(mL/min/1.73 m(2)) 1 Kidney damage with normal or decreased GFR 90 2 Kidney damage with mild decrease in GFR 60-89 3 Moderate decrease in GFR 30-59 4 Severe decrease in GFR 15-29 5 Kidney failure <15 (or dialysis) 4 Desirable: <150 Borderline High: 150-199 High: 200-499 Very High: >500 5 Desirable: <200 Borderline High: 200-239 High: >239 6 Low: <40 Desirable: 40-60 High: >60 7 Desirable: <100 Near Optimal: 100-129 Borderline High: 130-159 High: 160-189 Very High: >189 8 Therapeutic target for the treatment of diabetes mellitus patients is <7% HBA1C, and in selective patients <6.0%. Please refer to [place] [employer] diabetic care guidelines for further information. 9 Acute inflammation: >10.00 10 Serologic response to B. burgdorferi infection is not detected, but cannot rule out early infection during which low or undetectable antibody levels to B. burgdorferi may be present. If clinically indicated, a new serum specimen should be submitted in 7-14 days. Test Performed by: [facility] [address] [place] [address] 11 Corrected result! Wrong result was 141. 12 Corrected result! Wrong result was 3.8. 13 Corrected result! Wrong result was 109. 14 Corrected result! Wrong result was 5. 15 Corrected result! Wrong result was 83. 16 Corrected result! Wrong result was 10. 17 Corrected result! Wrong result was 1.07. 18 Corrected result! Wrong result was 9.3. 19 Corrected result! Wrong result was 9.5. 20 Corrected result! Wrong result was 6.4. 21 Corrected result! Wrong result was 2.4. 22 Corrected result! Wrong result was 1.7. 23 Corrected result! Wrong result was 0.60. 24 Corrected result! Wrong result was 74. 25 Corrected result! Wrong result was 13. 26 Corrected result! Wrong result was 15. 27 Corrected result! Wrong result was 51.5. 28 Corrected result! Wrong result was 66.2. Because ethnic data is not always readily available, this report includes an eGFR for both -Americans and non- Americans. The National Kidney Disease Education Program (NKDEP) does not endorse the use of the MDRD equation for patients that are not between the ages of 18 and 70, are , have extremes of body size, muscle mass, or nutritional status, or are non- or non-. According to the National Kidney Foundation, irrespective of diagnosis, the stage of the disease is based on the level of kidney function: Stage Description GFR(mL/min/1.73 m(2)) 1 Kidney damage with normal or decreased GFR 90 2 Kidney damage with mild decrease in GFR 60-89 3 Moderate decrease in GFR 30-59 4 Severe decrease in GFR 15-29 5 Kidney failure <15 (or dialysis) 29 REVISED REPORT --- Revised on 10/15/171621 --- WBC previously reported as: 7.4 10 3/ul 30 REVISED REPORT --- Revised on 10/15/171622 --- RBC previously reported as: 4.89 10 6/ul 31 REVISED REPORT --- Revised on 10/15/171622 --- Hemoglobin previously reported as: 14.8 g/dl 32 REVISED REPORT --- Revised on 10/15/171622 --- Hematocrit previously reported as: 45 % 33 REVISED REPORT --- Revised on 10/15/171622 --- MCV previously reported as: 91 fL 34 REVISED REPORT --- Revised on 10/15/171622 --- MCH previously reported as: 30 pg 35 REVISED REPORT --- Revised on 10/15/171622 --- MCHC previously reported as: 33 g/dl 36 REVISED REPORT --- Revised on 10/15/171622 --- RDW previously reported as: 14 % 37 REVISED REPORT --- Revised on 10/15/171623 --- Platelet Count previously reported as: 195 10 3/ul 38 REVISED REPORT --- Revised on 10/15/171623 --- MPV previously reported as: 11 H um3 39 REVISED REPORT --- Revised on 10/15/171623 --- ABS Neutrophils previously reported as: 4.0 10 3/ul 40 REVISED REPORT --- Revised on 10/15/171623 --- ABS Lymphs previously reported as: 2.5 10 3/ul 41 REVISED REPORT --- Revised on 10/15/171623 --- ABS Monocytes previously reported as: 0.5 10 3/ul 42 REVISED REPORT --- Revised on 10/15/171623 --- ABS Eosinophils previously reported as: 0.3 10 3/ul 43 REVISED REPORT --- Revised on 10/15/171623 --- ABS Basophils previously reported as: 0.1 10 3/ul 44 REVISED REPORT --- Revised on 10/15/171623 --- ABS NRBC previously reported as: 0 10 3/ul 45 REVISED REPORT --- Revised on 10/15/171623 --- Granulocyte % previously reported as: 53.9 % 46 REVISED REPORT --- Revised on 10/15/171623 --- Lymphocyte % previously reported as: 34.2 % 47 REVISED REPORT --- Revised on 10/15/171623 --- Monocyte % previously reported as: 6.8 % 48 REVISED REPORT --- Revised on 10/15/171623 --- Eosinophil % previously reported as: 3.7 % 49 REVISED REPORT --- Revised on 10/15/171624 --- Basophil % previously reported as: 1.4 % 50 REVISED REPORT --- Revised on 11/17/17 1625 --- NRBC % previously reported as: 0 51 Acute inflammation: >10.00 Corrected result! Wrong result was 4.48. 52 SEE RESULT BELOW Name: VELVETVASILE B : [address]: José Luis Bernstein MD Acct: [id number] Unit: [id number] AGE: 66 Location: [facility] Re10/15/16 SEX: F Status: REG REF SPEC: [id number] GALA: 10/15/16 [facility] DR: José Luis Bernstein MD REQ: [id number] RECD: 10/15/16 STATUS: SOUT _ ORDERED: IMAGE ANALYSIS, HPV/Thin Prep, HPV 16/18 GENE COMMENTS: [id number] FINAL DIAGNOSIS Negative for Intraepithelial lesion or Malignancy A. Ectocervical/Endocervical Specimen Adequacy: Satisfactory of evaluation Transformation zone component cannot be definitely identified due to presence of atrophy or other hormonal changes Patient Information: HPV: High risk HPV RNA testing regardless of pap results. HPV 16/18 Genotype Reflex Actual Specimen Date: 10/15/16 LMP If Unknown: Last Menstrual Period Not Given. Date of Last Specimen: 07/10/13 Date Time Test Result Flag (u) Normal Range 10/15/16 0902 HPV RNA RFLX GE Negative Negative The high-risk HPV types detected by the assay include: 16, 18, 31, 33, 35, 39, 45, 51, 52, 56, 58, 59, 66, and 68. Signed (signature on file) VINCE Torres(ASCP) 10/16 1090 This Pap test was evaluated with the assistance of the NovalysPrep Test Imaging System. Due to cytologic findings at the training specialist microscope, comprehensive manual rescreening by a Pattern Duplicator may be required. The Pap Smear is a screening test designed to aid in the detection of premalignant and malignant conditions of the uterine cervix. It is not a diagnostic procedure and should not be used as the sole means of detecting cervical cancer. Both false- positive and false- negative reports do occur. Depending on your risk status, a Pap smear should be obtained and evaluated every 1-3 years. END OF REPORT * ML=Testing performed at Main Lab DEPARTMENT OF PATHOLOGY, [address] [place] [address] Kane Courtney M.D. Director [facility] # [id number] 53 The high-risk HPV types detected by the assay include: 16, 18, 31, 33, 35, 39, 45, 51, 52, 56, 58, 59, 66, and 68. 54 HOMOGENEOUS 1:320 NUCLEOLAR 1:2560 55 Kane Courtney 56 REFERENCE VALUE <1.0 (Negative) Test Performed by: [place] [address] Machine Tech: Eric Segura II, M.D., Ph.D. 57 REFERENCE VALUE <20.0 (Negative) Test Performed by: [place] [address] Machine Tech: Eric Segura II, M.D., Ph.D. 58 Test Performed by: [place] [address] Machine Tech: Eric Segura II, M.D., Ph.D. 59 REFERENCE VALUE <20.0 (Negative) Test Performed by: [place] [address] Machine Tech: Eric Segura II, M.D., Ph.D. 60 Because ethnic data is not always readily available, this report includes an eGFR for both -Americans and non- Americans. The National Kidney Disease Education Program (NKDEP) does not endorse the use of the MDRD equation for patients that are not between the ages of 18 and 70, are , have extremes of body size, muscle mass, or nutritional status, or are non- or non-. According to the National Kidney Foundation, irrespective of diagnosis, the stage of the disease is based on the level of kidney function: Stage Description GFR(mL/min/1.73 m(2)) 1 Kidney damage with normal or decreased GFR 90 2 Kidney damage with mild decrease in GFR 60-89 3 Moderate decrease in GFR 30-59 4 Severe decrease in GFR 15-29 5 Kidney failure <15 (or dialysis) 61 REFERENCE VALUE <1.0 (Negative) Test Performed by: [place] [address] Machine Tech: Eric Segura II, M.D., Ph.D. 62 SEE RESULT BELOW Name: VASILE VERDIN : [address]: José Luis Bernstein MD Acct: [id number] Unit: [id number] AGE: 65 Location: [facility] Re11/20/15 SEX: F Status: REG REF SPEC: [id number] GALA: 11/20/15-1002 [facility] DR: José Luis Bernstein MD REQ: [id number] RECD: 11/20/15121 STATUS: COMP _ SOURCE: URINE SPDESC: ORDERED: Urine Culture Procedure Result Reported Site Urine Culture Final 11/22/15- 920 ML No growth of clinically significant organisms * ML - MAIN LAB ([facility]) . END OF REPORT * ML=Testing performed at Main Lab DEPARTMENT OF PATHOLOGY, [address] [place] [address] Kane Courtney M.D. Director [facility] # [id number] 63 It is recognized that currently available assays for the detection of antibodies to HIV-1 and/or HIV-2 may not detect all infected individuals. HIV antibodies may be undetectable in some stages of the infection and in some clinical conditions. The performance of this assay has not been established for populations of infants or children. Assayed by Chemiluminescence Microparticle Immunoassay on the Siemens Advia Centaur CP. Values obtained with different methods or kits cannot be used interchangeably.The diagnostic specificity of the ADVIA Centaur 1/O/2 Enhanced assay in the low risk population was 99.90% (6052/6058) with a 95% confidence interval of 99.78 to 99.96%. 64 FASTING ~~FASTING 65 Potassium reference range changed effective 09/30/14 66 Because ethnic data is not always readily available, this report includes an eGFR for both -Americans and non- Americans. The National Kidney Disease Education Program (NKDEP) does not endorse the use of the MDRD equation for patients that are not between the ages of 18 and 70, are , have extremes of body size, muscle mass, or nutritional status, or are non- or non-. According to the National Kidney Foundation, irrespective of diagnosis, the stage of the disease is based on the level of kidney function: Stage Description GFR(mL/min/1.73 m(2)) 1 Kidney damage with normal or decreased GFR 90 2 Kidney damage with mild decrease in GFR 60-89 3 Moderate decrease in GFR 30-59 4 Severe decrease in GFR 15-29 5 Kidney failure <15 (or dialysis) 67 FASTING 68 Normal Range 180 to 914 Indeterminate Range 145 to 180 Deficient Range <145 69 Test Performed by: [place] [address] Machine Tech: Srikanth Salinas M.D. 70 Desirable <150 Borderline high 150-199 High 200-499 Very High >500 71 Desirable <200 Borderline high 200-239 High >239 72 Low <40 Desirable: 40-60 High: >60 73 Desirable <100 Near Optimal 100-129 Borderline high 130-159 High 160-189 Very High >189 74 Low risk: <1.00 Average risk: 1.00-3.00 High risk: >3.00 75 Because ethnic data is not always readily available, this report includes an eGFR for both -Americans and non- Americans. The National Kidney Disease Education Program (NKDEP) does not endorse the use of the MDRD equation for patients that are not between the ages of 18 and 70, are , have extremes of body size, muscle mass, or nutritional status, or are non- or non-. According to the National Kidney Foundation, irrespective of diagnosis, the stage of the disease is based on the level of kidney function: Stage Description GFR(mL/min/1.73 m(2)) 1 Kidney damage with normal or decreased GFR 90 2 Kidney damage with mild decrease in GFR 60-89 3 Moderate decrease in GFR 30-59 4 Severe decrease in GFR 15-29 5 Kidney failure <15 (or dialysis) 76 FASTING 77 FASTING 78 Test Performed by: [place] [address] Machine Tech: Tony Holbrook III, M.D. 79 HDL Interpretation: Undesirable: High Risk: Less than 40 mg/dL Desirable: Low Risk: Greater than 60 mg/dL 80 LDL Interpretation: Low Risk Optimal Level: LDL Less than 100 mg/dL Near or Above Optimal: LDL 100-129 mg/dL Borderline High Risk: LDL 130-159 mg/dL High Risk: LDL 160-189 mg/dL Very High Risk: LDL Greater than 189 mg/dL 81 RESULT: Ectocervical/Endocervical 82 For types 16, 18, 31, 33, 35, 39, 45, 51, 52, 56, 58, 59 and 68. Test Performed by: [place] [address] Machine Tech: Tony Holbrook III, M.D. 83 RUN DATE: 07/11/13 [facility] LAB LIVE PAGE 1 RUN TIME: [address] [place] [address] Specimen Inquiry Name: VASILE VERDIN : [address]: Nicole Antunez NP Acct: [id number] Unit: [id number] AGE: 62 Location: [facility] Re07/10/13 SEX: F Status: REG REF SPEC: [id number] GALA: 07/10/13-1010 [facility] DR: Nicole Antunez FUEL CELL DESIGNER REQ: [id number] RECD: 07/10/13 STATUS: HARMEET ROSAS DR: Lyssa Thacker MD _ ORDERED: IMAGE ANALYSIS, PAP SM PATH REV, HPV / Thin Prep FINAL DIAGNOSIS Negative for Intraepithelial lesion or Malignancy Shift in va suggestive of bacterial vaginosis Reactive cellular changes associated with Inflammation (includes typical repair) COMMENTS: Specimen sent to [facility] in [place], [place] on 07/11/13 by [id number] at 1128. Results will be reported separately. A. Ectocervical/Endocervical Specimen Adequacy: Satisfactory of evaluation Transformation zone component identified Patient Information: HPV: High risk HPV DNA testing regardless of pap results. Actual Specimen Date: 07/10/13 LMP If Unknown: 2004 Cautery: N IUD: N Lesion, grossly demonstrate: N Radiation Y/N? N ?: N Post Menopausal?: Y Hysterectomy?: N Previous Abnormal Pap Smears?:N Signed (signature on file) Ana Ahumada MD 1851 This Pap test was evaluated with the assistance of the CaseReader Test Imaging System. Due to cytologic findings at the training specialist microscope, comprehensive manual rescreening by a Pattern Duplicator may be required. The Pap Smear is a screening test designed to aid in the detection of premalignant and malignant conditions of the uterine cervix. It is not a diagnostic procedure and should not be used as the sole means of detecting cervical cancer. Both false- positive and false- negative reports do occur. Depending on your risk status, a Pap smear shoudl be obtained and evaluated every 1-3 years. END OF REPORT * ML=Testing performed at Main Lab RUN DATE: 07/11/13 [facility] LAB LIVE PAGE 1 RUN TIME: 1851 [address] [employer] [address] [place], [place] [address] Specimen Inquiry Patient: VASILE VERDIN [id number] (Continued) DEPARTMENT OF PATHOLOGY, [facility] [address] [employer] [place], [place] [address] Kane Courtney M.D. Director [facility] Permit #[id number] -- REFERENCE VALUE -- 25-HYDROXY D TOTAL (D2+D3) Optimum levels in the normal population are 25-80 Test Performed by: [facility] - [address] [address] Machine Tech: Tony Holbrook III, M.D. R 85 Because ethnic data is not always readily available, this report includes an eGFR for both -Americans and non- Americans. The National Kidney Disease Education Program (NKDEP) does not endorse the use of the MDRD equation for patients that are not between the ages of 18 and 70, are , have extremes of body size, muscle mass, or nutritional status, or are non- or non-. According to the National Kidney Foundation, irrespective of diagnosis, the stage of the disease is based on the level of kidney function: Stage Description GFR(mL/min/1.73 m(2)) 1 Kidney damage with normal or decreased GFR 90 2 Kidney damage with mild decrease in GFR 60-89 3 Moderate decrease in GFR 30-59 4 Severe decrease in GFR 15-29 5 Kidney failure <15 (or dialysis) 86 HDL Interpretation: Undesirable: High Risk: Less than 40 MG/DL Desirable: Low Risk: Greater than 60 MG/DL 87 LDL Interpretation: Low Risk Optimal Level: LDL Less than 100 MG/DL Near or Above Optimal: LDL 100-129 MG/DL Borderline High Risk: LDL 130-159 MG/DL High Risk: LDL 160-189 MG/DL Very High Risk: LDL Greater than 189 MG/DL 88 A metabolite of Naproxen, O-desmethylnaproxen, has been shown to interfere with the Jendrassik-Sarahy method for measuring total bilirubin. Samples from patients who have taken Naproxen have shown spurious elevation in total bilirubin levels. Procedures Date Code Description Status 12/07/2018 54505 Nebulizer Treatment Completed 10/10/2015 16164 EKG, at Least 12 Leads w/Interpretation and Report Completed 09/27/2014 [id number] Mammogram Completed 08/02/2013 [id number] Mammogram Completed 09/26/2012 24068 Spirometry Completed Encounters Type Date Location Provider Dx Diagnosis Office Visit 12/07/2018 Frank Anand J20.9 Acute bronchitis , 10:45a Storm, BILINGUAL SPEECH LANGUAGE PATHOLOGIST-C unspecified Office Visit 11/03/2018 Frank Ordonez Z00.00 Encntr for general 1:00p MD Day adult medical exam w/o abnormal findings I10 Essential (primary) hypertension Z12.31 Encntr screen mammogram for malignant neoplasm of breast 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 J44.1 Chronic obstructive pulmonary disease w (acute) exacerbation Office Visit 08/25/2018 11:00a Frank Ordonez I10 Essential MD Day (primary) hypertension J35.1 Hypertrophy of tonsils Office Visit 08/11/2018 Frank Ordonez J44.1 Chronic 11:00a MD Day obstructive pulmonary disease w (acute) exacerbation I10 Essential (primary) hypertension Z23 Encounter for immunization [facility] Sciatica, right MD Day side K90.0 Celiac disease F32.89 Other specified depressive episodes K21.9 Gastro-esophageal reflux disease without esophagitis Office Visit 02/24/2018 8:30a Main Office José Luis Bernstein M54.31 Sciatica, right side M54.32 Sciatica, left side Office Visit 10/18/2017 8:00a Main Office José Luis Bernstein Z00.8 Encounter for other general examination R73.9 Hyperglycemia, unspecified K90.0 Celiac disease R74.0 Nonspec elev of levels of transamns & lactic acid dehydrgnse A69.20 Lyme disease, unspecified J44.9 Chronic obstructive pulmonary disease, unspecified Z23 Encounter for immunization Office Visit 10/15/2017 11:45a Main Office José Luis Bernstein, R50.9 Fever, unspecified Office Visit 09/30/2017 11:45a Main Office José Luis Bernstein, S30.861A Insect bite (nonvenomous) of abdominal wall, init encntr L03.115 Cellulitis of right lower limb Z23 Encounter for immunization Office Visit 06/17/2017 4:30p Main Office José Luis M54.10 Radiculopathy, site MD Day unspecified I10 Essential (primary) hypertension Office Visit 10/15/2016 8:00a Main Office José Luis Bernstein M54.32 Sciatica, left side Z12.31 Encntr screen mammogram for malignant neoplasm of breast Z23 Encounter for immunization Office Visit 01/08/2016 3:30p Main Office José Luis Bernstein J44.9 Chronic obstructive MD pulmonary disease, unspecified Office Visit 11/20/2015 9:15a Main Office José Luis Bernstein I27.2 Other secondary MD pulmonary hypertension Office Visit 10/10/2015 1:00p Main Office José Luis Bernstein Z12.4 Encounter for MD screening for malignant neoplasm of cervix J44.9 Chronic obstructive pulmonary disease, unspecified R07.89 Other chest pain Z23 Encounter for immunization Office Visit 05/16/2015 4:30p Main Office Jabari Sandoval, 386.11 Vertigo Benign BILINGUAL SPEECH LANGUAGE PATHOLOGIST-C Paroxysmal Position Office Visit 10/01/2014 4:00p Main Office Lyssa Hammond V70.0 Examination David Thacker General Medical Routine AT [facility] 496 COPD Airway Obstruction Chronic Not Class Elsewhere 579.0 Celiac Disease 281.1 Vitamin B12 Deficiency Anemia Other 372.14 Conjunctivitis Chronic Allergic Other 530.81 Esophageal Reflux 782.0 Skin Sensation Disturbance V04.81 Need For Prophylactic Vaccination & Inoculation/Influenza Office Visit 01/18/2014 9:30a Main Office Lyssa Hammond 496 COPD Airway David Thacker Obstruction Chronic Not Class Elsewhere 579.0 Celiac Disease 477.9 Rhinitis Allergic Cause Unspec Office Visit 10/16/2013 8:30a Main Office Lyssa Hammond V70.0 Examination General David Thacker Medical Routine AT [facility] 496 COPD Airway Obstruction Chronic Not Class Elsewhere 477.9 Rhinitis Allergic Cause Unspec 579.0 Celiac Disease 695.3 Rosacea 281.1 Vitamin B12 Deficiency Anemia Other 692.9 Dermatitis Unspec Cause Due To Spec Agents Other V04.81 Need For Prophylactic Vaccination & Inoculation/Influenza Office Visit 08/07/2013 3:00p Main Office Lyssa Hammond 477.9 Rhinitis Allergic David Thacker Cause Unspec 496 COPD Airway Obstruction Chronic Not Class Elsewhere 372.14 Conjunctivitis Chronic Allergic Other Office Visit 04/13/2013 9:15a Main Office Lyssa Thacker, 579.0 Celiac Kenan Hernandez 496 COPD Airway Obstruction Chronic Not Class Elsewhere 782.1 Rash & Other Nonspec Skin Eruption Office Visit 10/14/2012 9:00a Main Office Lyssa Hammond V70.0 Examination General David Thacker Medical Routine AT [facility] 579.0 Celiac Disease 786.2 Cough 496 COPD Airway Obstruction Chronic Not Class Elsewhere 733.90 Bone & Cartilage Disorder Unspec 281.1 Vitamin B12 Deficiency Anemia Other V04.81 Need For Prophylactic Vaccination & Inoculation/Influenza V06.1 Epvmzcvjeg-Wgkazgx-Paxrfjjw Combined (DTaP) Office Visit 09/26/2012 10:00a Main Office Jabari JamesShai Sandoval, BILINGUAL [employer]ECH LANGUAGE PATHOLOGIST-C 786.2 Cough Plan of Treatment 02/09/2019 - José Luis Bernstein, MDR05 CoughComments:She has had a COPD diagnosis , there is not a clear reason why this should be the case- relatively minimal smoking history, and continues to progress decades after stopping. A1AT testing was negative. Continues to progress.It seems likely that her unusual celiac disease (continues to be symptomatic even with strict gluten avoidance, requiring asacol and budesonide) and her unusual lung disease are related.She was seeing Dr. Gr years ago, but dropped out mid-workup.Follow up:Refer to Dr. Gr, she has seen him before years agoR13.13 Dysphagia, pharyngeal phaseComments:Presents with difficulty swallowing for three weeks. Feels that food is getting "stuck". Will refer to GI to r/o stricture of some sort.Follow up:Refer back to her GIJ44.1 Chronic obstructive pulmonary disease with (acute) exacerbatNew Medication:Anoro Ellipta 62.5-25 mcg/Inh - Inhale 1 puff by mouth daily for chronic obstructive lung diseaseComments:Has had worsening SOB since last appointment in 11/2018 after bronchitis dx. lungs are clear. No signs of infection at this time. Non-smoker and has been since 1980s. Unsure of why her COPD is as progressive as it has been. Prior Alpha-1 anti-trypsin test negative. Will refer to rheumatology for consult as this could be related to some sort of connective tissue disorder.
[2019-03-02 16:55] VITALS: BP 146/93
--- NOTE | 2019-03-02 17:00 | UC ---
Respiratory Complaint HPI - HPI Summary HPI Summary: 68 yo female presents with fever, fatigue, body aches, productive cough, intermittent SOB, and sinus congestion for the last 4 days. She tells me that she has a hx of COPD and has been on advair, albuterol, singulair, and spiriva in the past. Does not have any nebulizer treatments at home. She has seen pulmonology in the past. She has been taking ibuprofen for her symptoms with no relief. She denies sore throat, chest pain, abdominal pain, n/v, or rash. - History of Current Complaint Chief Complaint: UCRespiratory Stated Complaint: SINUS CONGESTION AND COUGH Time Seen by Provider: 03/02/19 16:59 Hx Obtained From: Patient Onset/Duration: Sudden Onset Severity Initially: Mild Severity Currently: Mild Pain Intensity: 4 Pain Scale Used: 0-10 Numeric Character: Cough: Productive - Allergies/Home Medications Allergies/Adverse Reactions: Allergies Allergy/AdvReac Type Severity Reaction Status Date / Time gluten Allergy Severe Diarrhea Verified 03/02/19 16:47 Home Medications: Home Medications Lisinopril 40 mg PO DAILY 03/02/19 [History Confirmed 03/02/19] PMH/Surg Hx/FS Hx/Imm Hx - Additional Past Medical History Additional PMH: Lumbar stenosis UC Cardiovascular History: Hypertension Respiratory History: COPD - Surgical History Surgical History: Yes Surgery Procedure, Year, and Place: 09/2003 - L4-L5 LAMINECTOMY AT [facility] – [place]. 1987 - TUBAL LIGATION. SKIN CARCINOMA REMOVED FROM BACK. 05/16- L4-L5 titanium screw - Family History Known Family History: Positive: Hypertension, Respiratory Disease - Social History Lives: With Family Alcohol Use: Daily Alcohol Amount: 1-2 glasses Substance Use Type: None Smoking Status (MU): Former Smoker Type: Cigarettes Amount Used/How Often: 1ppd, smoked for 4 years Have You Smoked in the Last Year: No When Did the Patient Quit Smoking/Using Tobacco: [id number] - Immunization History Most Recent Influenza Vaccination: 2016 Most Recent Pneumonia Vaccination: 2016 Review of Systems All Other Systems Reviewed And Are Negative: Yes Constitutional: Positive: Fever, Chills, Fatigue, Other - Body aches Skin: Positive: Negative Eyes: Positive: Negative ENT: Positive: Sinus Congestion Respiratory: Positive: Shortness Of Breath, Cough Cardiovascular: Positive: Negative Gastrointestinal: Positive: Negative Genitourinary: Positive: Negative Neurovascular: Positive: Negative Neurological: Positive: Negative Psychological: Positive: Negative Physical Exam - Summary Physical Exam Summary: GENERAL: NAD. Thin appearing SKIN: No rashes, sores, lesions, or open wounds. HEENT: Head: AT/NC Eyes: Conjunctiva clear without inflammation or discharge. Ears: Hearing grossly normal. TMs intact, no bulging, erythema, or edema. Nose: Nasal mucosa pink and moist. NTTP maxillary and frontal sinus. Throat: Posterior oropharynx without exudates, erythema, or tonsillar enlargement. Uvula midline. NECK: Supple. Nontender. CHEST: Moderate wheezing throughout. No accessory muscle use. Breathing comfortably and in no distress. CV: RRR. Without m/r/g. Pulses intact. Cap refill <2seconds NEURO: Alert. PSYCH: Age appropriate behavior. Triage Information Reviewed: Yes Vital Signs: Initial Vital Signs Temp 100.7 F 03/02/19 16:46 Pulse 99 03/02/19 16:46 Resp 18 03/02/19 16:46 BP 146/93 03/02/19 16:46 Pulse Ox 98 03/02/19 16:46 Laboratory Tests 03/02/19 17:48 Influenza A (Rapid) Negative Influenza B (Rapid) Negative Vital Signs Reviewed: Yes Respiratory Course/Dx - Course Course Of Treatment: CXR: IMPRESSION: SMALL BIBASILAR INFILTRATES. Duoneb: Mild improvement s/p. Less wheezing and feels easier to take a deep breath. POC flu: negative. Will treat with prednisone and augmentin for PNA and COPD exacerbation. - Differential Dx/Diagnosis Provider Diagnosis: PNA (pneumonia), COPD (chronic obstructive pulmonary disease) Discharge - Sign-Out/Discharge Documenting (check all that apply): Patient Departure All imaging exams completed and their final reports reviewed: Yes - Discharge Plan Condition: Stable Disposition: HOME Prescriptions: Amoxicillin/Clavulanate TAB* [Augmentin TAB 875*] 875 mg PO BID #14 tab predniSONE TAB* [Deltasone TAB*] 50 mg PO DAILY #4 tab Patient Education Materials: COPD (Chronic Obstructive Pulmonary Disease) (ED) , Community Acquired Pneumonia (ED) Referrals: José Luis Bernstein MD [Primary Care Provider] - 2 Weeks Additional Instructions: If you develop a fever, shortness of breath, chest pain, new or worsening symptoms - please call your PCP or go to the ED. I recommend you follow up with your primary doctor in 3-4 weeks for a recheck - or sooner if your symptoms do not improve. - Billing Disposition and Condition Condition: STABLE Disposition: Home
[2019-03-02] MEDS ORDERED: Albuterol/Ipratropium NEB.SOL* Albuterol 2.5 MG/Ipratropium 0.5 MG 3 ML INH ONE (17:07)
[2019-03-02 18:00] LABS: Influenza A Molecular NEGATIVE (Negative); Influenza B Molecular NEGATIVE (Negative)
[2019-03-02] MEDS ORDERED: Ibuprofen TAB* 600 MG PO ONE (18:17)
== END 2019-03-02 18:22 | disposition home or self-care (01) ==
LOC: UCEAST 16:40
DX: J18.9 Pneumonia, unspecified organism (principal); J44.9 Chronic obstructive pulmonary disease, unspecified; I10 Essential (primary) hypertension; Z87.891 Personal history of nicotine dependence
CPT/HCPCS: 71046; 99202; A9270-GY; G0463